=== PATIENT | female | born 1995 | race Asian ===

== ENCOUNTER 2019-01-12 09:59 | Emergency (ER) | payer OTHER ==
[~2019-01-12] VITALS: Ht 154.9 cm; Wt 71.8 kg
[2019-01-12] MEDS ORDERED: IBUPROFEN 600 MG TABLET PO ONE (11:15)
[2019-01-12] MEDS ORDERED: ACETAMINOPHEN 500 MG TABLET PO ONE (11:15)
[2019-01-12 11:59] VITALS: BP 116/73
== END 2019-01-12 12:50 | disposition home or self-care (01) ==
LOC: EMS 10:01
DX: S60.222A Contusion of left hand, initial encounter (principal); W23.0XXA Caught, crushed, jammed, or pinched between moving objects, initial encounter; Y93.89 Activity, other specified; Y92.89 Other specified places as the place of occurrence of the external cause; Y99.8 Other external cause status